=== PATIENT | male | born 1945 | race Caucasian/White ===

== ENCOUNTER 2018-01-11 09:55 | Emergency (ER) | payer MEDICARE ==
[2018-01-11 10:14] VITALS: BMI 27.6
[2018-01-11] MEDS ORDERED: ONDANSETRON 4 MG/2 ML VIAL IVPUSH ONE (11:16)
[2018-01-11] MEDS ORDERED: SODIUM CHLORIDE 500 ML IV STA (11:16)
[2018-01-11] MEDS ORDERED: KETOROLAC TROMETHAMINE 30 MG/1 ML VIAL IVPUSH ONE (11:16)
--- NOTE | 2018-01-11 11:20 | PDOC ---
History of Present Illness - General Chief Complaint: Pain, Acute Stated Complaint: ABD PAIN Time Seen by Provider: 01/11/18 10:53 History Source: Patient, Family - History of Present Illness Timing/Duration: reports: getting worse Quality: reports: severe Abdominal Pain Onset Location: reports: flank Past History - Past Medical History Allergies/Adverse Reactions: Allergies Allergy/AdvReac Type Severity Reaction Status Date / Time No Known Allergies Allergy Verified 01/11/18 10:05 Home Medications: Ambulatory Orders Enalapril Maleate [Vasotec] 10 mg PO DAILY 01/11/18 COPD: No HTN: Yes - Suicide/Smoking/Psychosocial Hx Smoking History: Never smoked Review of Systems - Review of Systems Constitutional: No: Chills, Fever, Malaise Respiratory: No: Shortness of Breath Cardiac (ROS): No: Chest Pain ABD/GI: Yes: Nausea. No: Blood Streaked Bowels, Rectal Bleeding, Vomiting : Yes: Flank Pain. No: Burning, Dysuria, Discharge, Hematuria Musculoskeletal: No: Back Pain *Physical Exam - Vital Signs Last Vital Signs Temp Pulse Resp BP Pulse Ox 99 F 55 L 18 137/69 95 01/11/18 10:09 01/11/18 10:09 01/11/18 10:01/11/18 10:01/11/18 10:09 - Physical Exam General Appearance: Yes: Appropriately Dressed. No: Apparent Distress HEENT: positive: Normal Voice Neck: positive: Supple Respiratory/Chest: positive: Lungs Clear, Normal Breath Sounds. negative: Respiratory Distress Cardiovascular: positive: Regular Rate, S1, S2 Gastrointestinal/Abdominal: positive: Tender (to L mid flank), Soft Musculoskeletal: negative: CVA Tenderness Extremity: positive: Normal Inspection Integumentary: positive: Dry, Warm Neurologic: positive: Fully Oriented, Alert, Normal Mood/Affect ED Treatment Course - LABORATORY CBC & Chemistry Diagram: 01/11/18 11:18 01/11/18 11:18 - RADIOLOGY Radiology Studies Ordered: Category Date Time Status ABDOMEN & PELVIS CT WITH CONTR [CT] Stat CT Scan 01/11/18 11:15 Ordered Medical Decision Making - Medical Decision Making 01/11/18 11:16 72-year-old male, history of hypertension, hyperlipidemia, status post surgery for BPH, resides in [facility] and currently on vacation in the [place], now brought in by family for left flank pain. Patient states for the past week, he's had intermittent left flank pain. Unable to describe and states pain is getting worse with intermittent nausea. No vomiting, change in bowel movements, hematochezia, melena, dysuria, hematuria, fever or chills. Denies history of similar pain. No h/o renal stones or diverticulitis. No CP, SOB, palpitations, leg pain/swelling See exam L flank pain R/o renal stone vs diverticulitis, less likely pyelo, no e/o aortic pathology, no trauma Stable w/ +ttp to L mid flank, no TTP to LLQ and neg CVAT -pain control -labs -CT 01/11/18 11:19 01/11/18 15:[address] read as mild dilatation of renal pelvis down to the UVJ junction b/l, L>R without any evidence of obstructing renal or ureteral stone. + diverticulosis without evidence of diverticulitis. There is partial distention and thickening of bladder wall. However pt has no dysuria, hematuria at this time to suspect UTI. Ucx sent. Patient reports that pain has resolved with toradol. Will dc w/ instructions to return for worsening of symptoms. Patient currently lives in [facility] and is scheduled to return in 2 weeks. Patient instructed to take tylenol as needed for pain *DC/Admit/Observation/Transfer Diagnosis at time of Disposition: Flank pain - Discharge Dispostion Condition at time of disposition: Improved - Referrals - Patient Instructions Printed Discharge Instructions: DI for Flank Pain Additional Instructions: La tomografa computarizada no revel ninguna causa de block dolor. Tu dolor podra ser muscular. Disney Tylenol segn sea necesario para el dolor y seguimiento en la clnica Por favor, jamil un seguimiento en [facility] [phone] - Post Discharge Activity
[2018-01-11 11:26] LABS: BASO % 0.4 % (0-2.0); EOS % 0.1 % (0-4.5); HEMATOCRIT 50.7 % (35.4-49); LYMPH % 10.1 % (8-40); MCH 30.7 pg (25.7-33.7); MCHC 33.5 g/dl (32.0-35.9); MEAN CELL VOLUME 91.7 fl (80-96); MEAN PLT VOLUME 8.8 fl (7.5-11.1); MONO % 3.5 % (3.8-10.2); NEUT % 85.9 % (42.8-82.8); PLATELET COUNT 246 K/MM3 (134-434); RBC 5.52 M/mm3 (4.00-5.60); RDW 13.6 % (11.9-15.9); WHITE BLOOD COUNT 9.9 K/mm3 (4.0-10.0)
[2018-01-11 11:27] LABS: URINE APPEARANCE CLEAR; URINE BILIRUBIN NEGATIVE (<2.0 mg/dL); URINE COLOR LTYELLOW; URINE GLUCOSE (UA) NEGATIVE (NEGATIVE); URINE KETONE TRACE (NEGATIVE); URINE LEUK ESTERASE NEGATIVE (NEGATIVE); URINE NITRITE NEGATIVE (NEGATIVE); URINE PROTEIN NEGATIVE (NEGATIVE)
[2018-01-11 11:53] LABS: ALBUMIN 4.4 g/dl (3.4-5.0); ANION GAP 9 MMOL/L (8-16); BLOOD UREA NITROGEN 16 mg/dL (7-18); CALCIUM 9.1 mg/dL (8.5-10.1); CHLORIDE 103 mmol/L (98-107); CO2 25 mmol/L (21-32); CREATININE 0.8 mg/dL (0.7-1.3); GLUCOSE,RANDOM 104 mg/dL (74-106); LIPASE 120 U/L (73-393); SGOT/AST 19 U/L (15-37); SGPT/ALT 20 U/L (12-78); SODIUM 137 mmol/L (136-145)
[2018-01-11 11:54] LABS: ALK PHOS 112 U/L (45-117); BILIRUBIN,TOTAL 0.9 mg/dL (0.2-1.0); TOT PROT 8.4 g/dl (6.4-8.2)
[2018-01-11] MEDS ORDERED: ONDANSETRON 4 MG/2 ML VIAL ONE (12:02)
[2018-01-11] MEDS ORDERED: KETOROLAC TROMETHAMINE 30 MG/1 ML VIAL ONE (12:02)
[2018-01-11 14:55] VITALS: BP 130/74; PULSE 58; TEMP 97.8
== END 2018-01-11 15:24 | disposition home or self-care (01) ==
LOC: JER 09:55
PROC: 3E033GC Introduction of Other Therapeutic Substance into Peripheral Vein, Percutaneous Approach (ICD-10-PCS; principal; 2018-01-11)
PROC: 3E0333Z Introduction of Anti-inflammatory into Peripheral Vein, Percutaneous Approach (ICD-10-PCS; 2018-01-11)
DX: R10.32 Left lower quadrant pain (principal); I10 Essential (primary) hypertension; E78.5 Hyperlipidemia, unspecified; Z98.890 Other specified postprocedural states
CPT/HCPCS: 36415; 74177-TC; 80053; 81003; 83690; 85025; 99283-25